=== PATIENT | male | born 1995 | race Caucasian/White ===

== ENCOUNTER 2017-12-21 09:24 | Emergency (ER) | payer BC ==
[2017-12-21] MEDS: IBUPROFEN 600 MG TAB PO (10:34)
== END 2017-12-21 11:22 | disposition home or self-care (01) ==
LOC: FTE 09:24
DX: R07.9 Chest pain, unspecified (principal); Z87.891 Personal history of nicotine dependence
CPT/HCPCS: 71045; 93005; 99284-25